=== PATIENT | female | born 1960 | race Caucasian/White ===

== ENCOUNTER 2017-05-24 23:35 | Emergency (ER) | payer OTHER ==
[~2017-05-24] VITALS: Ht 157.5 cm; Wt 79.0 kg
[~2017-05-24 23:35] MED LIST: ACETAMINOPHEN500 M5 PO; ALLEGRA-D 121 TABLET PO; COUMADIN2.5 MG PO; INDOCIN25 MG PO; IRON325 M1 PO; NASACORT AQ16.5 GM NS; PERCOCET 5/31 TABLET PO; PRILOSEC OTC20 MG PO; TRAMADOL HCL50 MG PO; TUMS500 M1 PO; VISTARIL25 MG PO
[2017-05-25 00:37] LABS: BASOPHIL COUNT 0.1 K/uL (0-0.1); EOSINOPHIL (%) 1.9 % (0-5); EOSINOPHIL COUNT 0.3 K/uL (0-0.3); HEMATOCRIT 40.5 % (36.0-46.0); IMMATURE GRANULOCYTE (%) 0.5 % (0.0-0.7); IMMATURE GRANULOCYTE COUNT 0.1 K/uL; INSTRUMENT ABS NEUTROPHIL CT 8.8 K/uL; LYMPHOCYTE COUNT 5.4 K/uL (1.0-2.8); MCH 31.8 PG (29.0-34.0); MCHC 32.8 G/DL (30.0-36.0); MCV 96.9 FL (83-99); MEAN PLAT.VOLUME 10.2 uM^3 (9.5-12.4); MONOCYTE (%) 11.9 % (3-12); NEUTROPHIL (%) 52.8 % (45-76); NEUTROPHIL COUNT 8.8 K/uL (1.8-6.4); PLATELET COUNT 276 K/uL (156-360); RBC DIS.WIDTH-CV 12.8 % (11.8-14.6); RBC DIS.WIDTH-SD 45.3 % (39-53); RED BLOOD COUNT 4.18 M/uL (3.80-5.20); WHITE BLOOD COUNT 16.6 K/uL (4.1-10.2)
[2017-05-25 00:51] LABS: CHLORIDE 111 mEq/L (99-109); POTASSIUM 3.5 mEq/L (3.7-5.4); SODIUM 140 mEq/L (136-147)
[2017-05-25 00:53] LABS: GLUCOSE 112 mg/dL (70-99)
[2017-05-25 00:54] LABS: ANION GAP 9 MEQ/L (2-14)
[2017-05-25 00:55] LABS: TOTAL BILIRUBIN 0.2 mg/dL (0.0-1.0)
[2017-05-25 00:56] LABS: ALKALINE PHOSPHATASE 98 IU/L (3-129)
[2017-05-25 00:57] LABS: GFR ESTIMATE (CALCULATED) > 59 mL/min/
[2017-05-25 00:58] LABS: UREA NITROGEN (BUN) 18 mg/dL (9-23)
[2017-05-25 01:03] LABS: TROP-I INTERPRETATION NEGATIVE; TROPONIN-I < 0.01 ng/mL (0.0-0.30)
[2017-05-25 03:18] LABS: TROP-I INTERPRETATION NEGATIVE; TROPONIN-I < 0.01 ng/mL (0.0-0.30)
[2017-05-25 04:18] VITALS: BP 136/77
== END 2017-05-25 04:23 | disposition home or self-care (01) ==
LOC: EME 23:35
PROVIDERS: Emergency Medicine
DX: R07.9 Chest pain, unspecified (principal); M54.2 Cervicalgia; F17.200 Nicotine dependence, unspecified, uncomplicated; K21.9 Gastro-esophageal reflux disease without esophagitis
CPT/HCPCS: 71020; 80053; 84484; 85025; 93005; 99281; 99285